=== PATIENT | female | born 1980 | race Caucasian/White ===

== ENCOUNTER 2022-04-25 11:00 | Outpatient (CLI) | payer BC, SELFPAY ==
--- NOTE | 2022-04-25 11:20 | CRLHL7_ITS ---
For Patients: As a result of the Cures Act, medical imaging exams and procedure reports are released immediately into your electronic medical record. You may view this report before your referring provider. If you have questions, please contact your health care provider. BILATERAL DIGITAL SCREENING MAMMOGRAM WITH COMPUTER-AIDED DETECTION CLINICAL HISTORY: Routine screening exam. COMPARISON: None. TECHNIQUE: Digital mammogram in CC and MLO projections including computer-aided detection (CAD). BREAST COMPOSITION: There are areas of scattered fibroglandular density. FINDINGS: RIGHT Breast: No suspicious findings. LEFT Breast: Focal asymmetric density within the lateral breast, posterior depth, 11 cm from the nipple. IMPRESSION: LEFT breast asymmetry/mass. RECOMMENDATIONS: Additional mammographic views of the LEFT breast including 3D XCCL and 3D true lateral mammograms along with a 3D spot compression MLO mammogram. LEFT breast ultrasound may also be required. [facility] will be contacting the patient to arrange for this additional study. BI-RADS Category 0: Incomplete: Need additional Imaging Evaluation and/or Prior Mammograms for Comparison A lay language report of this examination will be provided to the patient. Dictated by Sandeep Mathew MD @ 04/25/2022 12:19:56 PM davij/Dictated by: Sandeep Mathew MD @ 04/25/2022 12:19:00 PM (Electronically Signed)
== END 2022-04-25 11:01 | disposition home or self-care (01) ==
LOC: MAMMO 11:01
DX: Z12.31 Encounter for screening mammogram for malignant neoplasm of breast (principal); N63.20 Unspecified lump in the left breast, unspecified quadrant
CPT/HCPCS: 77063; 77067